=== PATIENT | male | born 1955 | race Caucasian/White ===

== ENCOUNTER 2020-06-08 05:26 | Emergency (ER) | payer MEDICARE ==
[~2020-06-08] VITALS: Ht 167.6 cm; Wt 145.4 kg
[~2020-06-08 05:26] MED LIST: CHLO25TA10; FURO-150 PO; HYDR1TAB PO; METH-603 PO; POTA20TA39 PO; PRAV40TA65 PO; VAL5T PO
--- NOTE | 2020-06-08 05:36 | NUR ---
PT'S DAUGHTER OSIRIS WHITEHEADQUEZ - [phone]
[2020-06-08] MEDS ORDERED: iohexol 350MG/ML 100ml bottle IV ONE (05:54)
[2020-06-08 06:08] LABS: BASOPHILS # (AUTO) 0.1 X10'3 (0-0.2); BASOPHILS % (AUTO) 0.6 % (0-1); EOSINOPHILS # (AUTO) 0.1 X10'3 (0-0.9); EOSINOPHILS % (AUTO) 0.7 % (0-6); HEMATOCRIT 56.6 % (42.0-52.0); LYMPHOCYTES % (AUTO) 21.1 % (21-51); MEAN CORPUSCULAR HEMOGLOBIN 33.6 PG (27.0-31.0); MEAN CORPUSCULAR HGB CONC 34.4 g/dL (33.0-36.5); MEAN CORPUSCULAR VOLUME 97.7 FL (78-98); MONOCYTES # (AUTO) 0.6 X10'3 (0-0.9); MONOCYTES % (AUTO) 6.4 % (2-12); NEUTROPHILS # (AUTO) 6.9 X10'3 (1.8-7.7); NEUTROPHILS % (AUTO) 71.2 % (42-75); PLATELET COUNT 324 X10'3 (140-440); RED BLOOD COUNT 5.79 X10'6 (4.70-6.10); RED CELL DISTRIBUTION WIDTH 13.3 % (11.5-14.5); WHITE BLOOD COUNT 9.7 X10'3 (4.5-11.0)
[2020-06-08 06:17] LABS: PARTIAL THROMBOPLASTIN TIME 27 SECONDS (22-32)
[2020-06-08 06:19] LABS: ALANINE AMINOTRANSFERASE 24 U/L (12-78); ALBUMIN 3.7 G/DL (3.4-5.0); ALBUMIN/GLOBULIN RATIO 0.8 (1.1-1.5); ALKALINE PHOSPHATASE 114 IU/L (46-116); ANION GAP 8 (8-16); ASPARTATE AMINO TRANSFERASE 21 U/L (10-37); BILIRUBIN,TOTAL 1.5 MG/DL (0.1-1.0); BLOOD UREA NITROGEN 14 MG/DL (7-18); BUN/CREATININE RATIO 12.3 (5.4-32.0); CALCIUM 8.8 MG/DL (8.5-10.1); CHLORIDE 105 MMOL/L (99-107); CREATININE 1.14 MG/DL (0.60-1.10); GLUCOSE 120 MG/DL (70-104); HEMOGLOBIN 19.4 g/dl (14.0-17.9); POTASSIUM 4.2 MMOL/L (3.5-5.1); SODIUM 141 MMOL/L (135-145); TOTAL CARBON DIOXIDE 27.9 MMOL/L (24-32); TOTAL PROTEIN 8.1 G/DL (6.4-8.2); eGFR 64 ML/MIN
[2020-06-08 06:22] LABS: TROPONIN I < 0.04 NG/ML (0.0-0.05)
[2020-06-08] MEDS ORDERED: aspirin 81mg tab.chew PO ONE (06:25)
[2020-06-08] MEDS ORDERED: clopidogrel 300mg tablet PO ONE (06:45)
[2020-06-08] MEDS ORDERED: ATOR80TA PO (06:56)
[2020-06-08] MEDS ORDERED: CLOP75TA15 PO (06:56)
[2020-06-08 07:32] VITALS: BP 135/103
[2020-06-08] MEDS ORDERED: atorvastatin 20mg tablet PO SCH (08:00)
== END 2020-06-08 09:13 | disposition home or self-care (01) ==
LOC: ER 05:26
DX: G45.9 Transient cerebral ischemic attack, unspecified (principal); G62.9 Polyneuropathy, unspecified; I25.10 Atherosclerotic heart disease of native coronary artery without angina pectoris; F12.90 Cannabis use, unspecified, uncomplicated; Z88.6 Allergy status to analgesic agent; Z79.899 Other long term (current) drug therapy
CPT/HCPCS: 36415; 70450; 70496; 70498; 71045; 80053; 84484; 85025; 85610; 85730; 93005; 93306; 99285; Q9967